=== PATIENT | male | born 1965 | race Caucasian/White ===

== ENCOUNTER 2024-05-21 06:41 | Day surgery (SDC) | payer BC, OTHER ==
[2024-05-19 09:58] VITALS: BMI 34.8
[2024-05-21] MEDS: ceFAZolin 2 GRAM PREMIX BAG IVPB ONE (14:29)
[2024-05-21] MEDS ORDERED: MIDAZOLAM HCL 2 MG/2 ML SINGLE DOSE VIAL ONE (14:30)
[2024-05-21] MEDS ORDERED: ELECTROLYTE-148 SOLN 1,000 ML IV SCH (14:30)
[2024-05-21 15:31] VITALS: RESP 18; TEMP 97.5
[2024-05-21 16:26] VITALS: BP 118/72; PULSE 98
== END 2024-05-21 16:27 | disposition home or self-care (01) ==
LOC: JASU-SURG 06:41
PROVIDERS: ATTEND Urology
PROC: 0TF6XZZ Fragmentation in Right Ureter, External Approach (ICD-10-PCS; principal; 2024-05-21 14:00)
DX: N20.1 Calculus of ureter (principal)
CPT/HCPCS: 82962